=== PATIENT | female | born 1940 | race Caucasian/White ===

== ENCOUNTER 2017-11-20 09:17 | Outpatient (CLI) | payer MEDICARE, OTHER | END 2017-11-20 09:18 | disposition critical access hospital (66) | LOC: EMS 09:17 | PROVIDERS: ATTEND Surgery | DX: R06.02 Shortness of breath (principal) | CPT/HCPCS: A0425; A0427 ==

== ENCOUNTER 2017-11-20 09:46 | Inpatient (IN) | payer MEDICARE, OTHER ==
[2017-11-20] MEDS ORDERED: LEVALBUTEROL 1.25 MG/3 ML NEB INH STA (09:56)
[2017-11-20] MEDS ORDERED: DEXAMETHASONE 10 MG/ML VIAL IVP STA (09:57)
[2017-11-20] MEDS ORDERED: cefTRIAXone 1 GM in SODIUM CHLORIDE 0.9% MINIBAG 100 ML IV STA (09:57)
--- NOTE | 2017-11-20 10:00 | ED Physician Documentation ---
"PD HPI DYSPNEA - Stated complaint Stated Complaint: SOA - Chief complaint Chief Complaint: Resp - History obtained from History obtained from: Patient, EMS - History of Present Illness Timing - onset: How many days ago (4) Timing - onset during: Rest Timing - duration: Days (4) Timing - details: Gradual onset, Still present Inciting event(s): URI Improved by: O2, Inhaler/neb, Rest Worsened by: Exertion, Coughing Associated symptoms: Cough, Wheezing, Chest pain / discomfort Similar symptoms before: Diagnosis (COPD) Recently seen: Not recently seen - Additional information Additional information: 77-year-old female with a history of COPD maintained on Spiriva and Advair has developed increasing shortness of breath over the past 4 days with a URI. She is coughing up some phlegm that is tinged with yellow and she has not had fever. Review of Systems Constitutional: reports: Fatigue. denies: Fever Eyes: denies: Decreased vision Ears: denies: Ear pain Nose: reports: Rhinorrhea / runny nose, Congestion Throat: denies: Sore throat Cardiac: reports: Chest pain / pressure. denies: Palpitations Respiratory: reports: Dyspnea, Cough, Wheezing GI: denies: Abdominal Pain, Nausea, Vomiting : denies: Dysuria, Frequency Skin: denies: Rash Musculoskeletal: denies: Neck pain, Back pain, Extremity pain PD PAST MEDICAL HISTORY - Present Medications Home Medications: Ambulatory Orders Medication Instructions Recorded Confirmed Citalopram Hydrobromide [Celexa] 20 mg PO DAILY 11/20/17 11/20/17 Fluticasone/Salmeterol [Advair 1 puffs PO BID 11/20/17 11/20/17 500-50 Diskus] Ipratropium [place] [Atrovent Hfa] 2 puffs INH Q6H 11/20/17 11/20/17 LORazepam [Lorazepam] 0.5 - 1 mg PO QPM PRN 11/20/17 11/20/17 Tiotropium [place] [Spiriva] 1 puffs PO DAILY 11/20/17 11/20/17 - Allergies Allergies/Adverse Reactions: Allergies Allergy/AdvReac Type Severity Reaction Status Date / Time codeine Allergy Unknown Headache Verified 11/20/17 09:56 diazepam [From Valium] Allergy Respiratory Verified 11/20/17 09:56 PD ED PE NORMAL - Vitals Vital signs reviewed: Yes (Tachycardic tachypneic and hypertensive) - General General: Well developed/nourished, Other (Thin 77-year-old female sitting upright tachypneic with a oxygen mask in place appears anxious.) - HEENT HEENT: Atraumatic, PERRL, EOMI, Other (Both TMs are mildly inflamed with some distortion of the landmarks.) - Neck Neck: Supple, no meningeal sign, No bony TTP - Cardiac Cardiac: Other (Tachycardic with 1 out of 6 holosystolic murmur at the left sternal border) - Respiratory Respiratory: Other (Tachypneic at rest with diminished breath sounds and wheezes throughout high-pitched.) - Abdomen Abdomen: Soft, Non tender - Back Back: No CVA TTP, No spinal TTP - Derm Derm: Normal color, Warm and dry, No rash - Extremities Extremities: No deformity, No edema - Neuro Neuro: No motor deficit, No sensory deficit Eye Opening: Spontaneous Motor: Obeys Commands Verbal: Oriented GCS Score: 15 - Psych Psych: Normal mood, Normal affect Results - Vitals Vitals: Vital Signs - 24 hr 11/20/17 11/20/17 11/20/17 09:48 11:02 11:04 Temperature 36.8 C Heart Rate 129 H 139 H 105 H Respiratory 28 H 26 H 29 H Rate Blood Pressure 142/109 H 133/77 H 120/72 O2 Saturation 100 94 92 11/20/17 11/20/17 12:06 12:30 Temperature Heart Rate 102 H 97 Respiratory 25 H 17 Rate Blood Pressure 84/60 L 83/53 L O2 Saturation 96 98 Oxygen O2 Source Room air - EKG (time done) 1045 Rate: Rate (enter#) (150) Rhythm: SVT QRS: Low voltage Ischemia: Q waves Compare to prior EKG: Old EKG unavailable Computer interpretation: Disagree with computer (I do not see run of [employer] | [employer]) - Labs Labs: Laboratory Tests 11/20/17 11/20/17 11/20/17 10:05 10:05 10:05 WBC 8.8 RBC 4.80 Hgb 15.2 Hct 47.7 H MCV 99.3 H MCH 31.7 H MCHC 31.9 L RDW 13.7 Plt Count 187 MPV 7.7 L Neut # 7.0 H Lymph # 1.1 L [place] # 0.4 Eos # 0.1 Baso # 0.2 H Absolute Nucleated RBC 0.01 Nucleated RBC % 0.1 Bld Gas Analysis Time Sample Site ABG pH ABG pCO2 ABG pO2 ABG HCO3 ABG Total CO2 ABG O2 Saturation ABG Oximetry Spot Check ABG Base Excess Quan Test O2 Delivery Device FiO2 EPAP IPAP Sodium 138 Potassium 4.5 Chloride 99 L Carbon Dioxide 27 Anion Gap 12.0 BUN 13 Creatinine 0.7 Estimated GFR (MDRD) 81 L Glucose 150 H Calcium 9.0 Total Bilirubin 0.5 AST 84 H ALT 68 H Alkaline Phosphatase 88 Troponin I 0.06 B-Natriuretic Peptide Total Protein 7.2 Albumin 4.0 Globulin 3.2 Albumin/Globulin Ratio 1.3 Lipase 15 L 11/20/17 11/20/17 11/20/17 10:05 11:25 12:40 WBC RBC Hgb Hct MCV MCH MCHC RDW Plt Count MPV Neut # Lymph # [place] # Eos # Baso # Absolute Nucleated RBC Nucleated RBC % Bld Gas Analysis Time 1130 1252 Sample Site RIGHT RADIAL RIGHT RADIAL ABG pH 7.06 L* 7.20 L* ABG pCO2 103 H* 67 H* ABG pO2 77 L 144 H ABG HCO3 28.3 H 25.5 ABG Total CO2 31.5 H 27.6 ABG O2 Saturation 91 L 99 H ABG Oximetry Spot Check 92 98 ABG Base Excess -5.2 L -3.9 L Quan Test POSITIVE POSITIVE O2 Delivery Device NASAL CANNULA BiPAP FiO2 40.00 EPAP 6 IPAP 16 Sodium Potassium Chloride Carbon Dioxide Anion Gap BUN Creatinine Estimated GFR (MDRD) Glucose Calcium Total Bilirubin AST ALT Alkaline Phosphatase Troponin I B-Natriuretic Peptide 43 Total Protein Albumin Globulin Albumin/Globulin Ratio Lipase - Rads (name of study) 1 view chest Radiology: Prelim report reviewed (Impression: Hyperexpanded lungs consistent with COPD. Nonspecific increase in interstitial markings. Question bilateral lung nodules. Suggest repeat two-view chest x-ray with bilateral nipple markers.), EMP read indepedently, See rad report PD MEDICAL DECISION MAKING - ED course Complexity details: reviewed old records, reviewed results, re-evaluated patient , considered differential, d/w patient, d/w family ED course: 69-year-old female with history of COPD who is never been admitted to the hospital for this previously has developed acute dyspnea and is struggling for breath in the emergency department. She has atrial fibrillation with rapid ventricular response and tight wheezes throughout. She is administered dexamethasone DuoNeb Xopenex morphine Ativan and magnesium. She is administered diltiazem as well. She does have some improvement but remains critically short of breath. Her arterial blood gas indicates significant CO2 retention and intubation is recommended. The patient is trialed on BiPAP prior to intubation. Dr. Sánchez is consulted in the case and will admit the patient into the hospital. Departure - Departure Disposition: [facility] DC/[place] Clinical Impression: Severe chronic obstructive pulmonary disease Condition: Critical Discharge Date/Time: 11/20/17 13:23"
[2017-11-20] MEDS ORDERED: LEVALBUTEROL 1.25 MG/3 ML NEB INH ONE ×2 (10:02→10:28)
[2017-11-20] MEDS ORDERED: LORazepam 2 MG/ML VIAL IVP STA (10:14)
[2017-11-20 10:15] LABS: BASOPHILS # (AUTO) 0.2 10^3/uL (0.0-0.1); BASOPHILS % (AUTO) 2.5 %; EOSINOPHILS # (AUTO) 0.1 10^3/uL (0.0-0.7); EOSINOPHILS % (AUTO) 0.6 %; HGB - HEMOGLOBIN 15.2 g/dL (12.0-16.0); LYMPHOCYTES # (AUTO) 1.1 10^3/uL (1.5-3.5); LYMPHOCYTES % (AUTO) 12.2 %; MEAN CORPUSCULAR HEMOGLOBIN 31.7 pg (27.0-31.0); MEAN CORPUSCULAR HGB CONC 31.9 g/dL (32.0-36.0); MEAN CORPUSCULAR VOLUME 99.3 fL (81.0-99.0); MEAN PLATELET VOLUME 7.7 fL (7.9-10.8); MONOCYTES # (AUTO) 0.4 10^3/uL (0.0-1.0); MONOCYTES % (AUTO) 4.8 %; NEUTROPHILS % (AUTO) 79.9 %; PLT - PLATELET COUNT 187 10^3/uL (130-450); RED CELL DISTRIBUTION WIDTH 13.7 % (12.0-15.0); WHITE BLOOD COUNT 8.8 x10^3/uL (4.8-10.8)
[2017-11-20] MEDS ORDERED: MORPHINE 2 MG/ML SYRINGE IVP STA (10:15)
[2017-11-20] MEDS ORDERED: MAGNESIUM SULFATE 2 GRAM 2 GM/50 ML BAG IV ONE (10:20)
[2017-11-20 10:29] LABS: ALBUMIN/GLOBULIN RATIO 1.3 (1.0-2.2); BILIRUBIN,TOTAL 0.5 mg/dL (0.2-1.0); CREATININE 0.7 mg/dL (0.4-1.0); TOTAL PROTEIN 7.2 g/dL (6.7-8.2)
[2017-11-20] MEDS ORDERED: diltiaZEM INJ 5 MG/ML VIAL IVP STA (10:46)
--- NOTE | 2017-11-20 11:13 | XRAY Report ---
EXAM: CHEST RADIOGRAPHY EXAM DATE: 11/20/2017 10:58 AM. CLINICAL HISTORY: Short of breath COMPARISON: Chest CT 05/27/2015 TECHNIQUE: 1 view. FINDINGS: Lungs/Pleura: Nonspecific increase in interstitial markings. Hyperexpanded lungs. Faint nodular densi ty right midlung projected over the sixth anterior rib. Question nodular density over the left sevent h anterior rib. Mediastinum: Within exam limitations, the cardiomediastinal contour is normal. Other: Question prior left breast surgery IMPRESSION: Hyperexpanded lungs consistent with COPD. Nonspecific increase in interstitial markings. Question bilateral lung nodules. Suggest repeat 2 view chest x-ray with bilateral nipple markers [facility] Referring Provider Line: [phone] SITE ID: [id number]
[2017-11-20 11:32] LABS: ABG BASE EXCESS -5.2 mmol/L (-2.0-3.0); ABG HCO3 28.3 mmol/L (22.0-26.0); ABG OXYGEN SATURATION 91 % (94-98); ABG PO2 77 mmHg (80-100); ABG TCO2 31.5 MMOL/L (21.0-29.0)
[2017-11-20 11:33] LABS: ALLEN TEST POSITIVE
[2017-11-20 11:35] LABS: ABG PCO2 103 mmHg (34-45); ABG PH 7.06 (7.35-7.45)
[2017-11-20] MEDS ORDERED: SODIUM CHLORIDE 0.9% 500 ML IV ONE (12:07)
[2017-11-20] MEDS ORDERED: PROCHLORPERAZINE 10 MG/2 ML VIAL IVP PRN (12:41)
[2017-11-20] MEDS ORDERED: oxyCODONE 5 MG TABLET PO PRN (12:41)
--- NOTE | 2017-11-20 12:57 | HISTORY & PHYSICAL EXAMINATION ---
Chief Complaint - Chief Complaint Chief Complaint: dyspnea History of Present Illness - Admitted From Admitted From:: home - History of Present Illness HPI Comment/Other: Ms. Debora Montano is a 77-year-old female with a history of COPD who has been declining steadily over the last week or so according to her good friend. She does not typically wear oxygen at home and has been struggling with a cold which began a few days ago. Over the last 24 to 2047 hrs. it has become much more severe and this morning she called her friend and asked her to take her to the emergency room because she could not breathe.Her friend also notes that she has had unexplained weight loss over the last 6 months, greater than 10% of the total body weight, and was exhibiting pursed lip breathing when she found her this morning. She is also no longer talking and has become very severely dyspneic with any type of exertion. History - Past Medical History Cardiovascular: reports: None Respiratory: reports: COPD Neuro: reports: None Endocrine/Autoimmune: reports: None GI: reports: None CONTROLS PROJECT ENGINEER: reports: None : reports: None HEENT: reports: None Psych: reports: Depression, Anxiety Musculoskeletal: reports: None Derm: reports: None MRSA Hx?: No - Past Surgical History /CONTROLS PROJECT ENGINEER: reports: Hysterectomy Other past surgical history: Facelift, Both thumb joints are prosthetic - Family & Social History Family History: Mother: (Mother age 100 of natural causes. Father' s cause of is unknown. Brother of injury sustained in an MVA), Father: , Brother: Living arrangement: At home Living Situation: Alone - Substance History Use: Uses substance without health or social issues: Alcohol Dependence: Experiences withdrawal or developed tolerances: Tobacco Tobacco Details: Cigarettes - POLST Patient has POLST: Yes POLST Status: DNR (Per friend/caregiver) Meds/Allgy - Home Medications Home Medications: Ambulatory Orders Medication Instructions Recorded Confirmed Citalopram Hydrobromide [Celexa] 20 mg PO DAILY 11/20/17 11/20/17 Fluticasone/Salmeterol [Advair 1 puffs PO BID 11/20/17 11/20/17 500-50 Diskus] Ipratropium [place] [Atrovent Hfa] 2 puffs INH Q6H 11/20/17 11/20/17 LORazepam [Lorazepam] 0.5 - 1 mg PO QPM PRN 11/20/17 11/20/17 Tiotropium [place] [Spiriva] 1 puffs PO DAILY 11/20/17 11/20/17 - Allergies Allergies/Adverse Reactions: Allergies Allergy/AdvReac Type Severity Reaction Status Date / Time codeine Allergy Unknown Headache Verified 11/20/17 09:56 diazepam [From Valium] Allergy Respiratory Verified 11/20/17 09:56 Review of Systems - Constitutional Constitutional: denies: Fatigue - Eyes Eyes: denies: Pain, Irritation, Blurred vision, Vision loss, Dipolpia - Ears, Nose & Throat Ears, Nose & Throat: denies: Ear pain, Hearing loss, Hearing aids, Tinnitus, Vertigo, Nasal pain, Nasal discharge - Cardiovascular Cariovascular: denies: Palpitations, Chest pain, Edema, Syncope - Respiratory Respiratory: reports: Cough, Sputum production, Wheezing, SOB at rest, SOB with exertion. denies: Hemoptysis - Gastrointestinal Gastrointestinal: denies: Abdominal pain, Abdominal distention, Constipation, Diarrhea, Change in bowel habits, Rectal bleeding - Genitourinary Genitourinary: denies: Dysuria, Frequency, Urgency, Hematuria - Musculoskeletal Musculoskeletal: denies: Muscle pain, Back pain, Muscle aches, Stiffness - Integumentary Integumentary: denies: Rash, Pruritis, Lesions, Dryness - Neurological Neurological: denies: General weakness, Focal weakness, Headache, Dizziness, Numbness - Psychiatric Psychiatric: denies: Depression, Anxiety, Suicidal, Hallucinations - Endocrine Endocrine: denies: Polyuria, Polydypsia, Polyphagia - Hematologic/Lymphatic Hematologic/Lymphatic: denies: Anemia, Bruising, Petechiae, Lymphadenopathy - All Other Systems All Other Systems: reports: Reviewed and negative Exam - Vital Signs Reviewed Vital Signs: Yes Vital Signs: Vital Signs x48h Temp Pulse Resp BP Pulse Ox 11/20/17 12:06 102 H 25 H 84/60 L 96 11/20/17 11:04 105 H 29 H 120/72 92 11/20/17 11:02 139 H 26 H 133/77 H 94 11/20/17 09:48 36.8 C 129 H 28 H 142/109 H 100 - Physical Exam General Appearance: positive: No acute distress, Alert Eyes Bilateral: positive: Normal inspection, PERRL, EOMI ENT: positive: ENT inspection nml, Pharynx nml, No signs of dehydration Neck: positive: Nml inspection, Thyroid nml, No JVD, Trachea midline. negative : Thyromegaly Respiratory: positive: Chest non-tender, Other (Positive significant tachypnea and respiratory failure). negative: Wheezes, Rales, Rhonchi Cardiovascular: positive: No murmur, No gallop, Tachycardia Peripheral Pulses: positive: 1+ Abdomen: positive: Non-tender, No organomegaly, Nml bowel sounds, No distention. negative: Guarding, Rebound, Hepatomegaly, Splenomegaly Back: positive: Nml inspection. negative: CVA tenderness (R), CVA tenderness (L ) Skin: positive: Color nml, No rash, Warm, Dry, Cyanosis, Pallor. negative: Skin rash, Laceration (cm) Extremities: positive: Non-tender, Nml appearance, No pedal edema. negative: Joint swelling Neurologic/Psychiatric: positive: Disoriented to person, Disoriented to place, Disoriented to time, Weakness. negative: Oriented x3 Conclusion/Plan - Problem List (1) Severe chronic obstructive pulmonary disease Conclusion/Plan: The patient is currently on BiPAP with an FiO2 40%. Her blood gases are showing significant improvement over just the course of about 45 minutes and she appears to be comfortable. We will continue with the current regimen and settings and will wean her off of the BiPAP as soon as she starts to show signs that this is possible. (2) Depression with anxiety Conclusion/Plan: We will continue the patient on her citalopram and lorazepam and address any other issues as they arise. - Lab Results Lab results reviewed: Yes Fish Bones: 11/20/17 10:05 11/20/17 10:05 - Diagnostic Imaging Results Diagnostic Imaging Results Comments: EXAM: CHEST RADIOGRAPHY EXAM DATE: 11/20/2017 10:58 AM. CLINICAL HISTORY: Short of breath COMPARISON: Chest CT 05/27/2015 TECHNIQUE: 1 view. FINDINGS: Lungs/Pleura: Nonspecific increase in interstitial markings. Hyperexpanded lungs. Faint nodular density right midlung projected over the sixth anterior rib. Question nodular density over the left seventh anterior rib. Mediastinum: Within exam limitations, the cardiomediastinal contour is normal. Other: Question prior left breast surgery IMPRESSION: Hyperexpanded lungs consistent with COPD. Nonspecific increase in interstitial markings. Question bilateral lung nodules. Suggest repeat 2 view chest x-ray with bilateral nipple markers Core Measures - Anticipated LOS I expect patient to be DC'd or transferred within 96 hours.: Yes - DVT/VTE - Prophylaxis VTE/DVT Device ordered at admit?: Yes
[2017-11-20 13:01] LABS: ABG BASE EXCESS -3.9 mmol/L (-2.0-3.0); ABG HCO3 25.5 mmol/L (22.0-26.0); ABG OXYGEN SATURATION 99 % (94-98); ABG PO2 144 mmHg (80-100); ABG TCO2 27.6 MMOL/L (21.0-29.0); ALLEN TEST POSITIVE
[2017-11-20 13:04] LABS: ABG PCO2 67 mmHg (34-45)
[2017-11-20] MEDS: D5.45NS W/20 MEQ KCL 1,000 ML IV SCH ×2 (13:56→23:50)
[2017-11-20] MEDS: SODIUM CHLORIDE FLUSH 0.9% 10 ML SYRINGE IVP SCH ×2 (14:02→22:22)
[2017-11-20] MEDS: IPRATROPIUM 0.2 MG/ML NEB INH PRN (16:45)
[2017-11-20] MEDS: methylPREDNISolone SUCCINATE 40 MG/ML VIAL IVP SCH ×2 (18:31→23:50)
[2017-11-21] MEDS ORDERED: LORazepam 2 MG/ML VIAL ONE (02:33)
[2017-11-21] MEDS: MORPHINE 2 MG/ML SYRINGE IVP PRN ×2 (02:48→07:14)
[2017-11-21 05:15] LABS: CALCIUM 8.4 mg/dL (8.5-10.3); CREATININE 0.7 mg/dL (0.4-1.0); MAGNESIUM 2.2 mg/dL (1.7-2.8); PHOSPHORUS 3.5 mg/dL (2.5-4.6)
[2017-11-21] MEDS: SODIUM CHLORIDE FLUSH 0.9% 10 ML SYRINGE IVP SCH ×3 (06:12→22:35)
[2017-11-21] MEDS: methylPREDNISolone SUCCINATE 40 MG/ML VIAL IVP SCH ×3 (06:12→17:04)
[2017-11-21] MEDS: SODIUM CHLORIDE FLUSH 0.9% 10 ML SYRINGE IVP PRN ×2 (07:14→11:50)
[2017-11-21 08:57] LABS: BILIRUBIN,URINE NEGATIVE (NEGATIVE); GLUCOSE, URINE (UA) NEGATIVE (NEGATIVE); KETONES,URINE (UA) NEGATIVE (NEGATIVE); LEUKOCYTE ESTERASE, URINE NEGATIVE (NEGATIVE); NITRITE,URINE NEGATIVE (NEGATIVE); OCCULT BLOOD,URINE SMALL (NEGATIVE); PROTEIN,URINE 30 mg/dL (NEGATIVE); UROBILINOGEN,URINE 0.2 (NORMAL) E.U./dL (NORMAL)
[2017-11-21 09:01] LABS: CLARITY,URINE CLEAR (CLEAR)
[2017-11-21] MEDS ORDERED: ASPIRIN 325 MG TABLET PO PRN (09:05)
[2017-11-21 09:20] LABS: BACTERIA,URINE Moderate /HPF (None Seen); SQUAMOUS EPITHELIAL CELL,UR MOD Squamous (<= Few)
[2017-11-21] MEDS: NICOTINE 14 MG PATCH TOP SCH (09:24)
[2017-11-21] MEDS: D5.45NS W/20 MEQ KCL 1,000 ML IV SCH (09:49)
[2017-11-21 11:02] LABS: ABG BASE EXCESS -1.9 mmol/L (-2.0-3.0); ABG HCO3 24.8 mmol/L (22.0-26.0); ABG OXYGEN SATURATION 99 % (94-98); ABG PCO2 50 mmHg (34-45); ABG PH 7.32 (7.35-7.45); ABG PO2 138 mmHg (80-100); ABG TCO2 26.3 MMOL/L (21.0-29.0); ALLEN TEST POSITIVE
--- NOTE | 2017-11-21 12:53 | PROVIDER PROGRESS NOTE ---
Subjective - Prog Note Date Prog Note Date: 11/21/17 Prog Note Time: 12:41 - Subjective Pt reports feeling: Improved (The patient is breathing easier but had to go back on the BiPAP after being off it overnight. She is much more awake and alert than on admission and is able to carry on a conversation. She was unable to come off of the BiPAP for more than a minute or 2 earlier when she tried to have some lunch.) Objective - Vital Signs/Intake & Output Reviewed Vital Signs: Yes Vital Signs: Vital Signs x48h Temp Pulse Pulse Resp BP Pulse Ox 11/21/17 12:21 100 11/21/17 12:00 36.9 C 94 19 93/66 98 11/21/17 11:00 88 12 92/65 99 11/21/17 10:52 88 11/21/17 10:00 94 21 101/73 98 11/21/17 09:00 104 H 22 108/70 97 11/21/17 08:00 37.1 C 122 H 124 H 25 H 127/86 H 93 11/21/17 07:00 113 H 30 H 96/71 94 11/21/17 06:00 92 20 93/69 97 11/21/17 05:00 94 23 88/65 L 98 Intake & Output: Intake & Output 11/18/17 11/19/17 11/20/17 11/21/17 23:59 23:59 23:59 23:59 Intake Total 2040.000 1678.334 Output Total 125 300 Balance 0722.294 5561.334 - Objective General Appearance: positive: Alert, Mild distress Eyes Bilateral: positive: Normal inspection, PERRL, EOMI, No lid inflammation, Conjunctivae nml ENT: positive: ENT inspection nml, Pharynx nml, No signs of dehydration Neck: positive: Nml inspection, Thyroid nml, No JVD, Trachea midline. negative : Carotid bruit Respiratory: positive: Chest non-tender, No respiratory distress, Breath sounds nml. negative: Wheezes, Rales, Rhonchi Cardiovascular: positive: No murmur, No gallop, Tachycardia. negative: Systolic murmur, Diastolic murmur Abdomen: positive: Non-tender, No organomegaly, Nml bowel sounds, No distention. negative: Guarding, Rebound Back: positive: Nml inspection. negative: CVA tenderness (R), CVA tenderness (L ) Skin: positive: Color nml, No rash, Warm, Dry. negative: Cyanosis Extremities: positive: Non-tender, Full ROM, Nml appearance Neurologic/Psychiatric: positive: Oriented x3, CN's nml (2-12), Motor nml, Sensation nml, Mood/affect nml - Lab Results Fish Bones: 11/20/17 10:05 11/21/17 04:43 Other Labs: Lab Results x24hrs 11/21/17 11/21/17 11/21/17 Range/Units 10:45 08:45 04:43 Bld Gas Analysis Time 1059 Sample Site RIGHT RADIAL ABG pH 7.32 L (7.35-7.45) ABG pCO2 50 H (34-45) mmHg ABG pO2 138 H (80-100) mmHg ABG HCO3 24.8 (22.0-26.0) mmol/L ABG Total CO2 26.3 (21.0-29.0) MMOL/L ABG O2 Saturation 99 H (94-98) % ABG Base Excess -1.9 (-2.0-3.0) mmol/L Quan Test POSITIVE O2 Delivery Device BiPAP FiO2 30.00 EPAP 4 cmH2O IPAP 18 cmH2O Sodium (135-145) mmol/L Potassium (3.5-5.0) mmol/L Chloride (101-111) mmol/L Carbon Dioxide (21-32) mmol/L Anion Gap (6-13) BUN (6-20) mg/dL Creatinine (0.4-1.0) mg/dL Estimated GFR (MDRD) (>89) Glucose (70-100) mg/dL Calcium (8.5-10.3) mg/dL Phosphorus (2.5-4.6) mg/dL Magnesium (1.7-2.8) mg/dL Lactate Dehydrogenase 150 (91-225) IU/L Urine Color YELLOW Urine Clarity CLEAR (CLEAR) Urine pH 6.0 (5.0-7.5) PH Ur Specific [place] >=1.030 H (1.002-1.030) Urine Protein 30 H (NEGATIVE) mg/dL Urine Glucose (UA) NEGATIVE (NEGATIVE) mg/dL Urine Ketones NEGATIVE (NEGATIVE) mg/dL Urine Occult Blood SMALL H (NEGATIVE) Urine Nitrite NEGATIVE (NEGATIVE) Urine Bilirubin NEGATIVE (NEGATIVE) Urine Urobilinogen 0.2 (NORMAL) (NORMAL) E.U./dL Ur Leukocyte Esterase NEGATIVE (NEGATIVE) Urine RBC 6-10 H (0-5) /HPF Urine WBC 0-3 (0-5) /HPF Ur Squamous Epith Cells MOD Squamous H (<= Few) Urine Bacteria Moderate H (None Seen) /HPF Ur Microscopic Review INDICATED Urine Culture Comments NOT INDICATED 11/21/17 Range/Units 04:43 Bld Gas Analysis Time Sample Site ABG pH (7.35-7.45) ABG pCO2 (34-45) mmHg ABG pO2 (80-100) mmHg ABG HCO3 (22.0-26.0) mmol/L ABG Total CO2 (21.0-29.0) MMOL/L ABG O2 Saturation (94-98) % ABG Base Excess (-2.0-3.0) mmol/L Quan Test O2 Delivery Device FiO2 EPAP cmH2O IPAP cmH2O Sodium 132 L (135-145) mmol/L Potassium 5.3 H (3.5-5.0) mmol/L Chloride 101 (101-111) mmol/L Carbon Dioxide 22 (21-32) mmol/L Anion Gap 9.0 (6-13) BUN 16 (6-20) mg/dL Creatinine 0.7 (0.4-1.0) mg/dL Estimated GFR (MDRD) 81 L (>89) Glucose 187 H (70-100) mg/dL Calcium 8.4 L (8.5-10.3) mg/dL Phosphorus 3.5 (2.5-4.6) mg/dL Magnesium 2.2 (1.7-2.8) mg/dL Lactate Dehydrogenase (91-225) IU/L Urine Color Urine Clarity (CLEAR) Urine pH (5.0-7.5) PH Ur Specific [place] (1.002-1.030) Urine Protein (NEGATIVE) mg/dL Urine Glucose (UA) (NEGATIVE) mg/dL Urine Ketones (NEGATIVE) mg/dL Urine Occult Blood (NEGATIVE) Urine Nitrite (NEGATIVE) Urine Bilirubin (NEGATIVE) Urine Urobilinogen (NORMAL) E.U./dL Ur Leukocyte Esterase (NEGATIVE) Urine RBC (0-5) /HPF Urine WBC (0-5) /HPF Ur Squamous Epith Cells (<= Few) Urine Bacteria (None Seen) /HPF Ur Microscopic Review Urine Culture Comments - Diagnostic Imaging Diagnostic Imaging Results: positive: Final report reviewed Assessment/Plan - Problem List (1) Severe chronic obstructive pulmonary disease Impression: The patient has improved significantly over the last 24 hours since her admission. She was able to come off of the BiPAP for a few hours last night but unfortunately had to go back on this morning and is doing much better since she has gone back on. She thinks that this is more a case of her disease getting out of control then a new underlying process, as she has felt this coming on yet did nothing to stop or slow it down. (2) Depression with anxiety Impression: Well-managed, continue present medication regimen.
[2017-11-21] MEDS: IPRATROPIUM 0.2 MG/ML NEB INH PRN (13:22)
[2017-11-21] MEDS: IPRATROPIUM/ALBUTEROL 3 ML NEB INH SCH ×3 (13:25→23:15)
[2017-11-21] MEDS: SODIUM CHLORIDE 0.9% 1,000 ML IV SCH (13:25)
[2017-11-21] MEDS: MORPHINE 2 MG/ML CARPUJECT IVP PRN ×4 (15:23→22:34)
[2017-11-21] MEDS ORDERED: CHLORHEXIDINE GLUCONATE 15 ML UDC PO ONE (19:33)
[2017-11-21] MEDS: CHLORHEXIDINE GLUCONATE 15 ML UDC PO SCH (20:26)
[2017-11-22] MEDS: methylPREDNISolone SUCCINATE 40 MG/ML VIAL IVP SCH ×4 (00:09→18:22)
[2017-11-22] MEDS: SODIUM CHLORIDE 0.9% 1,000 ML IV SCH ×2 (00:13→12:23)
[2017-11-22 01:23] LABS: BASOPHILS % (AUTO) 0.1 %; HGB - HEMOGLOBIN 12.6 g/dL (12.0-16.0); LYMPHOCYTES # (AUTO) 0.6 10^3/uL (1.5-3.5); LYMPHOCYTES % (AUTO) 5.1 %; MEAN CORPUSCULAR HEMOGLOBIN 31.8 pg (27.0-31.0); MEAN CORPUSCULAR HGB CONC 33.6 g/dL (32.0-36.0); MEAN CORPUSCULAR VOLUME 94.9 fL (81.0-99.0); MEAN PLATELET VOLUME 7.5 fL (7.9-10.8); MONOCYTES # (AUTO) 0.6 10^3/uL (0.0-1.0); MONOCYTES % (AUTO) 5.1 %; NEUTROPHILS # (AUTO) 10.1 10^3/uL (1.5-6.6); NEUTROPHILS % (AUTO) 89.7 %; PLT - PLATELET COUNT 184 10^3/uL (130-450); RED BLOOD COUNT 3.96 10^6/uL (4.20-5.40); RED CELL DISTRIBUTION WIDTH 13.1 % (12.0-15.0); WHITE BLOOD COUNT 11.2 x10^3/uL (4.8-10.8)
[2017-11-22 01:28] LABS: CALCIUM 8.7 mg/dL (8.5-10.3); CREATININE 0.7 mg/dL (0.4-1.0)
[2017-11-22 01:43] LABS: PHOSPHORUS 3.4 mg/dL (2.5-4.6)
[2017-11-22 01:51] LABS: CALCIUM 8.7 mg/dL (8.5-10.3)
[2017-11-22] MEDS: MORPHINE 2 MG/ML CARPUJECT IVP PRN ×7 (03:14→20:26)
[2017-11-22 05:37] LABS: ABG BASE EXCESS 1.5 mmol/L (-2.0-3.0); ABG HCO3 28.1 mmol/L (22.0-26.0); ABG OXYGEN SATURATION 97 % (94-98); ABG PCO2 53 mmHg (34-45); ABG PH 7.35 (7.35-7.45); ABG PO2 91 mmHg (80-100); ABG TCO2 29.7 MMOL/L (21.0-29.0); ALLEN TEST POSITIVE
[2017-11-22] MEDS: SODIUM CHLORIDE FLUSH 0.9% 10 ML SYRINGE IVP SCH ×3 (06:23→21:06)
--- NOTE | 2017-11-22 06:29 | XRAY Report ---
EXAM: CHEST RADIOGRAPHY EXAM DATE: 11/22/2017 06:23 AM. CLINICAL HISTORY: Shortness of breath. COMPARISON: 11/20/2017. TECHNIQUE: 1 view. FINDINGS: Lungs/Pleura: Large lung volumes consistent with emphysema. No alveolar consolidation or pleural effu yary seen. No pneumothorax. Mediastinum: Within exam limitations, the cardiomediastinal contour is normal. Other: Osteopenia. IMPRESSION: 1. Emphysema. No acute abnormality seen. [facility] Referring Provider Line: [phone] SITE ID: [id number]
--- NOTE | 2017-11-22 06:29 | XRAY Preliminary Report ---
Exam: XR CHEST 1 VIEW X-RAY IMPRESSION: 1. Emphysema. No acute abnormality seen. [facility] SITE ID: [id number]
[2017-11-22] MEDS: IPRATROPIUM/ALBUTEROL 3 ML NEB INH SCH ×4 (08:00→19:30)
[2017-11-22] MEDS: CHLORHEXIDINE GLUCONATE 15 ML UDC PO SCH (10:35)
[2017-11-22] MEDS: NICOTINE 14 MG PATCH TOP SCH (10:36)
[2017-11-22] MEDS: SODIUM CHLORIDE FLUSH 0.9% 10 ML SYRINGE IVP PRN (10:37)
--- NOTE | 2017-11-22 14:38 | PROVIDER PROGRESS NOTE ---
Subjective - Prog Note Date Prog Note Date: 11/22/17 Prog Note Time: 14:38 - Subjective Pt reports feeling: Improved (Less shortness of breath, but still BiPAP dependant.) Current Medications - Current Medications Current Medications: DuoNeb, aspirin, Peridex, Atrovent, Solu-Medrol, morphine, NicoDerm, Compazine, sodium chloride Objective - Vital Signs/Intake & Output Reviewed Vital Signs: Yes Vital Signs: Vital Signs x48h Temp Pulse Pulse Resp BP Pulse Ox 11/22/17 14:00 85 22 103/68 96 11/22/17 13:00 91 22 102/76 97 11/22/17 12:00 82 15 105/79 96 11/22/17 11:30 90 11 L 11/22/17 11:00 88 18 107/70 98 11/22/17 10:00 92 18 108/71 96 11/22/17 09:00 92 15 105/68 96 11/22/17 08:00 97.9 C H 104 H 109 H 24 122/70 94 11/22/17 07:00 86 19 103/69 96 Intake & Output: Intake & Output 11/19/17 11/20/17 11/21/17 11/22/17 23:59 23:59 23:59 23:59 Intake Total 2040.000 3713.950 2089.907 Output Total 125 875 325 Balance 1750.964 1796.950 1764.907 - Objective General Appearance: positive: No acute distress, Alert Eyes Bilateral: positive: Normal inspection, PERRL, EOMI, No lid inflammation, Conjunctivae nml ENT: positive: ENT inspection nml, Pharynx nml, No signs of dehydration, Purulent nasal drainage, Oral lesions Neck: positive: Nml inspection, Thyroid nml, No JVD, Trachea midline. negative : Thyromegaly Respiratory: positive: Chest non-tender, No respiratory distress, Breath sounds nml. negative: Wheezes, Rales, Rhonchi Cardiovascular: positive: Regular rate & rhythm, No murmur, No gallop, Tachycardia. negative: Extrasystoles Abdomen: positive: Non-tender, No organomegaly, Nml bowel sounds, No distention. negative: Tenderness, Guarding, Rebound Back: positive: Nml inspection. negative: CVA tenderness (R), CVA tenderness (L ) Skin: positive: Color nml, No rash, Warm, Dry. negative: Cyanosis Extremities: positive: Non-tender, Full ROM, Nml appearance, No pedal edema Neurologic/Psychiatric: positive: Oriented x3, CN's nml (2-12), Motor nml, Sensation nml, Mood/affect nml - Lab Results Fish Bones: 11/22/17 01:10 11/22/17 01:10 Other Labs: Lab Results x24hrs 11/22/17 11/22/17 11/22/17 Range/Units 06:50 05:25 01:10 WBC (4.8-10.8) x10^3/uL RBC (4.20-5.40) 10^6/uL Hgb (12.0-16.0) g/dL Hct (37.0-47.0) % MCV (81.0-99.0) fL MCH (27.0-31.0) pg MCHC (32.0-36.0) g/dL RDW (12.0-15.0) % Plt Count (130-450) 10^3/uL MPV (7.9-10.8) fL Neut # (1.5-6.6) 10^3/uL Lymph # (1.5-3.5) 10^3/uL Hooker # (0.0-1.0) 10^3/uL Eos # (0.0-0.7) 10^3/uL Baso # (0.0-0.1) 10^3/uL Absolute Nucleated RBC x10^3/uL Nucleated RBC % /100WBC Bld Gas Analysis Time 0535 Sample Site RIGHT RADIAL ABG pH 7.35 (7.35-7.45) ABG pCO2 53 H (34-45) mmHg ABG pO2 91 (80-100) mmHg ABG HCO3 28.1 H (22.0-26.0) mmol/L ABG Total CO2 29.7 H (21.0-29.0) MMOL/L ABG O2 Saturation 97 (94-98) % ABG Oximetry Spot Check 97 % ABG Base Excess 1.5 (-2.0-3.0) mmol/L Quan Test POSITIVE FiO2 25.00 EPAP 4 cmH2O IPAP 18 cmH2O Sodium (135-145) mmol/L Potassium (3.5-5.0) mmol/L Chloride (101-111) mmol/L Carbon Dioxide (21-32) mmol/L Anion Gap (6-13) BUN (6-20) mg/dL Creatinine (0.4-1.0) mg/dL Estimated GFR (MDRD) (>89) Glucose (70-100) mg/dL Calcium 8.7 (8.5-10.3) mg/dL Ionized Calcium NO Phosphorus (2.5-4.6) mg/dL Magnesium (1.7-2.8) mg/dL Troponin I 0.35 (<0.49) ng/mL 11/22/17 11/22/17 11/22/17 Range/Units 01:10 01:10 01:10 WBC 11.2 H (4.8-10.8) x10^3/uL RBC 3.96 L (4.20-5.40) 10^6/uL Hgb 12.6 (12.0-16.0) g/dL Hct 37.6 (37.0-47.0) % MCV 94.9 (81.0-99.0) fL MCH 31.8 H (27.0-31.0) pg MCHC 33.6 (32.0-36.0) g/dL RDW 13.1 (12.0-15.0) % Plt Count 184 (130-450) 10^3/uL MPV 7.5 L (7.9-10.8) fL Neut # 10.1 H (1.5-6.6) 10^3/uL Lymph # 0.6 L (1.5-3.5) 10^3/uL Hooker # 0.6 (0.0-1.0) 10^3/uL Eos # 0.0 (0.0-0.7) 10^3/uL Baso # 0.0 (0.0-0.1) 10^3/uL Absolute Nucleated RBC 0.00 x10^3/uL Nucleated RBC % 0.0 /100WBC Bld Gas Analysis Time Sample Site ABG pH (7.35-7.45) ABG pCO2 (34-45) mmHg ABG pO2 (80-100) mmHg ABG HCO3 (22.0-26.0) mmol/L ABG Total CO2 (21.0-29.0) MMOL/L ABG O2 Saturation (94-98) % ABG Oximetry Spot Check % ABG Base Excess (-2.0-3.0) mmol/L Quan Test FiO2 EPAP cmH2O IPAP cmH2O Sodium (135-145) mmol/L Potassium (3.5-5.0) mmol/L Chloride (101-111) mmol/L Carbon Dioxide (21-32) mmol/L Anion Gap (6-13) BUN (6-20) mg/dL Creatinine (0.4-1.0) mg/dL Estimated GFR (MDRD) (>89) Glucose (70-100) mg/dL Calcium (8.5-10.3) mg/dL Ionized Calcium Phosphorus 3.4 (2.5-4.6) mg/dL Magnesium 2.0 (1.7-2.8) mg/dL Troponin I 0.47 (<0.49) ng/mL 11/22/17 Range/Units 01:10 WBC (4.8-10.8) x10^3/uL RBC (4.20-5.40) 10^6/uL Hgb (12.0-16.0) g/dL Hct (37.0-47.0) % MCV (81.0-99.0) fL MCH (27.0-31.0) pg MCHC (32.0-36.0) g/dL RDW (12.0-15.0) % Plt Count (130-450) 10^3/uL MPV (7.9-10.8) fL Neut # (1.5-6.6) 10^3/uL Lymph # (1.5-3.5) 10^3/uL Hooker # (0.0-1.0) 10^3/uL Eos # (0.0-0.7) 10^3/uL Baso # (0.0-0.1) 10^3/uL Absolute Nucleated RBC x10^3/uL Nucleated RBC % /100WBC Bld Gas Analysis Time Sample Site ABG pH (7.35-7.45) ABG pCO2 (34-45) mmHg ABG pO2 (80-100) mmHg ABG HCO3 (22.0-26.0) mmol/L ABG Total CO2 (21.0-29.0) MMOL/L ABG O2 Saturation (94-98) % ABG Oximetry Spot Check % ABG Base Excess (-2.0-3.0) mmol/L Quan Test FiO2 EPAP cmH2O IPAP cmH2O Sodium 132 L (135-145) mmol/L Potassium 5.1 H (3.5-5.0) mmol/L Chloride 97 L (101-111) mmol/L Carbon Dioxide 25 (21-32) mmol/L Anion Gap 10.0 (6-13) BUN 18 (6-20) mg/dL Creatinine 0.7 (0.4-1.0) mg/dL Estimated GFR (MDRD) 81 L (>89) Glucose 132 H (70-100) mg/dL Calcium 8.7 (8.5-10.3) mg/dL Ionized Calcium Phosphorus (2.5-4.6) mg/dL Magnesium (1.7-2.8) mg/dL Troponin I (<0.49) ng/mL Assessment/Plan - Problem List (1) Severe chronic obstructive pulmonary disease Impression: The patient remains BiPAP dependent and although she is breathing a little bit easier today she can only remain off of the BiPAP for a couple of minutes after being premedicated with morphine.The patient has discussed with me at length her desire to not be intubated and that if she cannot come off of the BiPAP she would like to here at the hospital. (2) Depression with anxiety Impression: Well managed, continue present care.
[2017-11-23] MEDS: SODIUM CHLORIDE 0.9% 1,000 ML IV SCH ×2 (00:02→12:59)
[2017-11-23] MEDS: methylPREDNISolone SUCCINATE 40 MG/ML VIAL IVP SCH ×4 (00:03→18:32)
[2017-11-23] MEDS: MORPHINE 2 MG/ML CARPUJECT IVP PRN ×7 (02:16→16:43)
[2017-11-23] MEDS: SODIUM CHLORIDE FLUSH 0.9% 10 ML SYRINGE IVP SCH ×3 (05:08→20:53)
[2017-11-23] MEDS: CHLORHEXIDINE GLUCONATE 15 ML UDC PO SCH ×3 (05:33→19:31)
[2017-11-23] MEDS: IPRATROPIUM/ALBUTEROL 3 ML NEB INH SCH ×5 (05:45→19:50)
[2017-11-23 05:55] LABS: CALCIUM 9.1 mg/dL (8.5-10.3); CREATININE 0.6 mg/dL (0.4-1.0); MAGNESIUM 2.1 mg/dL (1.7-2.8); PHOSPHORUS 3.3 mg/dL (2.5-4.6)
[2017-11-23] MEDS: SODIUM CHLORIDE FLUSH 0.9% 10 ML SYRINGE IVP PRN ×2 (06:17→18:33)
[2017-11-23 06:18] LABS: CALCIUM 9.1 mg/dL (8.5-10.3)
[2017-11-23] MEDS ORDERED: SENNA 8.6 MG TABLET PO SCH (09:00)
[2017-11-23] MEDS ORDERED: POLYETHYLENE GLYCOL 3350 17 GM PACKET PO SCH (09:00)
[2017-11-23] MEDS: LORazepam 2 MG/ML VIAL IVP PRN ×2 (09:37→16:51)
[2017-11-23] MEDS: NICOTINE 14 MG PATCH TOP SCH (10:04)
[2017-11-23] MEDS: DOCUSATE SODIUM 250 MG CAPSULE PO SCH (10:04)
--- NOTE | 2017-11-23 15:41 | PROVIDER PROGRESS NOTE ---
Subjective - Prog Note Date Prog Note Date: 11/23/17 Prog Note Time: 15:39 - Subjective Pt reports feeling: Improved (The patient is sedated due to administration of Lorazepam but is off of the BiPAP at this time and breathing easily with an oxygen saturation of 99% on 6 L via nasal cannula.) Current Medications - Current Medications Current Medications: DuoNeb, aspirin, Peridex, Atrovent, Solu-Medrol, morphine, NicoDerm, Compazine, sodium chloride Objective - Vital Signs/Intake & Output Reviewed Vital Signs: Yes Vital Signs: Vital Signs Pulse Resp BP Pulse Ox 11/23/17 15:00 94 17 106/70 99 11/23/17 14:00 94 15 107/71 99 11/23/17 13:05 94 15 105/71 99 11/23/17 12:00 92 12 96/73 99 Intake & Output: Intake & Output 11/20/17 11/21/17 11/22/17 11/23/17 23:59 23:59 23:59 23:59 Intake Total 2040.000 3713.950 3418.206 1123.800 Output Total 125 875 475 200 Balance 8298.835 9300.950 2943.206 923.800 - Objective General Appearance: positive: No acute distress, Lethargic Eyes Bilateral: positive: Normal inspection, PERRL, EOMI ENT: positive: ENT inspection nml, Pharynx nml, No signs of dehydration Neck: positive: Nml inspection, Thyroid nml, No JVD, Trachea midline. negative : Thyromegaly Respiratory: positive: Chest non-tender, No respiratory distress, Breath sounds nml. negative: Wheezes, Rales, Rhonchi Cardiovascular: positive: Regular rate & rhythm, No murmur, No gallop Abdomen: positive: Non-tender, No organomegaly, Nml bowel sounds, No distention. negative: Tenderness Back: positive: Nml inspection. negative: CVA tenderness (R), CVA tenderness (L ) Skin: positive: Color nml, No rash, Warm, Dry. negative: Cyanosis Extremities: positive: Non-tender, Full ROM, Nml appearance, No pedal edema Neurologic/Psychiatric: positive: Other (Patient is sedated and lethargic) - Lab Results Fish Bones: 11/22/17 01:10 11/23/17 05:30 Other Labs: Lab Results x24hrs 11/23/17 11/23/17 Range/Units 05:30 05:30 Sodium 136 (135-145) mmol/L Potassium 4.9 (3.5-5.0) mmol/L Chloride 98 L (101-111) mmol/L Carbon Dioxide 27 (21-32) mmol/L Anion Gap 11.0 (6-13) BUN 24 H (6-20) mg/dL Creatinine 0.6 (0.4-1.0) mg/dL Estimated GFR (MDRD) 97 (>89) Glucose 135 H (70-100) mg/dL Calcium 9.1 9.1 (8.5-10.3) mg/dL Ionized Calcium NO Phosphorus 3.3 (2.5-4.6) mg/dL Magnesium 2.1 (1.7-2.8) mg/dL Assessment/Plan - Problem List (1) Severe chronic obstructive pulmonary disease Impression: The patient is off of BiPAP and breathing easily on 2 L/min supplemental oxygen via nasal cannula. Her oxygen saturation is 99% and her breathing rate is 14 at this time. She is also sedated and has been given multiple doses of morphine for her air hunger.Had a greater than 30 minute discussion with family and friends today regarding advanced care directives and advanced care planning. They wish to have the patient transferred to [facility] for end-of- life care at this time. A consultation has been placed with hospice and with [facility]. (2) Depression with anxiety Impression: Continue present care.
[2017-11-23] MEDS: MORPHINE ER 60 MG TABLET PO SCH ×2 (17:17→20:53)
[2017-11-23] MEDS ORDERED: MORPHINE 2 MG/ML CARPUJECT IVP SCH (18:00)
[2017-11-23] MEDS ORDERED: LORazepam 2 MG/ML VIAL IVP SCH (18:00)
[2017-11-23] MEDS: MORPHINE 2 MG/ML CARPUJECT IVP SCH (20:52)
[2017-11-23] MEDS: LORazepam 2 MG/ML VIAL IVP SCH (20:52)
[2017-11-24] MEDS: methylPREDNISolone SUCCINATE 40 MG/ML VIAL IVP SCH ×3 (00:39→12:15)
[2017-11-24] MEDS: MORPHINE 2 MG/ML CARPUJECT IVP SCH ×4 (00:40→13:06)
[2017-11-24] MEDS: SODIUM CHLORIDE FLUSH 0.9% 10 ML SYRINGE IVP PRN ×4 (00:41→14:02)
[2017-11-24] MEDS: LORazepam 2 MG/ML VIAL IVP SCH ×4 (00:47→13:05)
[2017-11-24 05:44] LABS: BUN - BLOOD UREA NITROGEN 27 mg/dL (6-20); CALCIUM 8.7 mg/dL (8.5-10.3); CARBON DIOXIDE - CO2 31 mmol/L (21-32); CHLORIDE 100 mmol/L (101-111); CREATININE 0.6 mg/dL (0.4-1.0); GFR - MDRD 97 (>89); GLUCOSE 112 mg/dL (70-100); MAGNESIUM 2.3 mg/dL (1.7-2.8); PHOSPHORUS 4.5 mg/dL (2.5-4.6); SODIUM 137 mmol/L (135-145)
[2017-11-24] MEDS: SODIUM CHLORIDE FLUSH 0.9% 10 ML SYRINGE IVP SCH ×2 (06:08→14:03)
[2017-11-24 06:57] VITALS: BP 101/66
[2017-11-24] MEDS ORDERED: HALOPERIDOL 1 MG TABLET PO PRN (07:42)
[2017-11-24] MEDS ORDERED: LOPERAMIDE 2 MG CAPSULE PO PRN (07:42)
[2017-11-24] MEDS ORDERED: GLYCOPYRROLATE 1 MG/5 ML VIAL SUBQ PRN (07:42)
[2017-11-24] MEDS ORDERED: HALOPERIDOL 5 MG/ML VIAL IVP PRN (07:42)
[2017-11-24] MEDS: CHLORHEXIDINE GLUCONATE 15 ML UDC PO SCH (08:13)
[2017-11-24] MEDS: NICOTINE 14 MG PATCH TOP SCH (09:21)
[2017-11-24] MEDS: DOCUSATE SODIUM 250 MG CAPSULE PO SCH (09:21)
[2017-11-24] MEDS: MORPHINE ER 60 MG TABLET PO SCH (09:22)
[2017-11-24] MEDS ORDERED: MORPHINE 2 MG/ML CARPUJECT IVP STA (09:24)
[2017-11-24] MEDS: MORPHINE 2 MG/ML CARPUJECT IVP PRN ×4 (11:10→15:00)
[2017-11-24] MEDS: LORazepam 2 MG/ML VIAL IVP PRN (11:45)
[2017-11-24] MEDS ORDERED: MORPHINE 2 MG/ML CARPUJECT IVP PRN (15:00)
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
--- NOTE | 2017-11-24 16:57 | Discharge Plan ---
Discharge Plan Disposition: 20 No Smoking: If you smoke, Please STOP! Call for help.
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
== END 2017-11-24 16:30 | disposition expired | DRG 192 ==
LOC: EDUNIT# → ED 09:46 → ICU 12:41
PROVIDERS: ADMIT Hospitalist; ATTEND Hospitalist
DX: J44.9 Chronic obstructive pulmonary disease, unspecified (principal); I48.91 Unspecified atrial fibrillation; J44.1 Chronic obstructive pulmonary disease with (acute) exacerbation; R06.09 Other forms of dyspnea; F17.210 Nicotine dependence, cigarettes, uncomplicated; F41.8 Other specified anxiety disorders; Z79.51 Long term (current) use of inhaled steroids; Z79.899 Other long term (current) drug therapy; Z66 Do not resuscitate
CPT/HCPCS: 36415; 36600; 71045; 80048; 80053; 81001; 81003; 82310; 82803; 83615; 83690; 83735; 83880; 84100; 84484; 85025; 87086; 87150; 93005; 94640; 94660; 96361; 96365; 96367; 96375; 99284